=== PATIENT | male | born 1985 | race African-American/Black ===

== ENCOUNTER 2016-03-18 20:20 | Emergency (ER) | payer MEDICAID | END 2016-03-18 23:00 | disposition home or self-care (01) | LOC: D.ER 20:20 | DX: R07.89 Other chest pain (principal) ==

== ENCOUNTER 2017-03-02 21:19 | Emergency (ER) | payer MEDICAID ==
[2017-03-02 22:44] LABS: BASOPHILS 0.3 % (0-2); EOSINOPHILS 0.3 % (0-7); HEMOGLOBIN 14.1 g/dL (13.5-17.5); IMMATURE GRANULOCYTES 5.9 % (0-5); LYMPHOCYTES 9.8 % (15-50); MCH 25.4 pg (26.0-34.0); MCHC 35.3 g/dL (31.0-37.0); MCV 72.1 fL (80.0-100.0); MEAN PLATELET VOLUME 9.7 fL (7.4-10.4); MONOCYTES 6.8 % (2-11); NEUTROPHILS 76.9 % (40-80); PLATELET COUNT 124 10x3/uL (130-400); RBC 5.55 10x6/uL (4.20-6.10); RDW 15.1 % (11.5-14.5); WBC 11.6 10x3/uL (4.8-10.8)
[2017-03-02 22:58] LABS: ALBUMIN 4.5 g/dL (3.4-5.0); ALKALINE PHOSPHATASE 67 U/L (46-116); ALT (SGPT) 31 U/L (10-68); BILIRUBIN - TOTAL 1.46 mg/dL (0.2-1.3); CALC OSMOLALITY 277 mosm/kg (275-300); CALCIUM 9.7 mg/dL (8.5-10.1); CARBON DIOXIDE 29.9 mmol/L (21.0-32.0); CHLORIDE - SERUM 101 mmol/L (98-107); CREATININE - SERUM 1.1 mg/dL (0.6-1.3); GLUCOSE 104 mg/dL (74-106); POTASSIUM - SERUM 4.7 mmol/L (3.5-5.1); SODIUM 139 mmol/L (136-145); UREA NITROGEN 12 mg/dL (7-18); eGFR NON AFRICAN AMERICAN 82 mL/min (90-120)
== END 2017-03-02 23:42 | disposition home or self-care (01) ==
LOC: D.ER 21:19
PROVIDERS: Family Medicine
DX: M62.838 Other muscle spasm (principal)

== ENCOUNTER 2018-11-08 17:37 | Emergency (ER) | payer MEDICAID ==
[~2018-11-08] VITALS: Ht 175.3 cm; Wt 77.3 kg
[2018-11-08 17:41] VITALS: Ht 175.3 cm; Wt 77.3 kg
[2018-11-08 18:08] LABS: BASOPHILS 0.1 % (0-2); EOSINOPHILS 0.9 % (0-7); HEMATOCRIT 38.5 % (42.0-54.0); HEMOGLOBIN 13.8 g/dL (13.5-17.5); IMMATURE GRANULOCYTES 0.1 % (0-5); MCH 23.5 pg (26.0-34.0); MCHC 35.8 g/dL (31.0-37.0); MCV 65.5 fL (80.0-100.0); MONOCYTES 7.3 % (2-11); NEUTROPHILS 66.6 % (40-80); PLATELET COUNT 127 10x3/uL (130-400); RBC 5.88 10x6/uL (4.20-6.10); RDW 16.3 % (11.5-14.5)
[2018-11-08 18:17] LABS: ALBUMIN 3.8 g/dL (3.4-5.0); ANION GAP 12.1 mmol/L (8-16); BILIRUBIN - TOTAL 0.87 mg/dL (0.2-1.3); CALCIUM 8.9 mg/dL (8.5-10.1); CARBON DIOXIDE 28.1 mmol/L (21.0-32.0); CREATININE - SERUM 1.2 mg/dL (0.6-1.3); POTASSIUM - SERUM 3.2 mmol/L (3.5-5.1); PROTEIN - SERUM 8.1 g/dL (6.4-8.2)
[2018-11-08] MEDS ORDERED: VOLTAREN75 MG PO (19:38)
[2018-11-08] MEDS ORDERED: ALBUTEROL SULF8.5 GM INH (19:38)
[2018-11-08 20:16] VITALS: BP 124/79
== END 2018-11-08 20:16 | disposition home or self-care (01) ==
LOC: D.ER 17:37
PROVIDERS: Emergency Medicine
DX: M79.10 Myalgia, unspecified site (principal); J98.11 Atelectasis

== ENCOUNTER 2018-11-19 00:39 | Emergency (ER) | payer MEDICAID ==
[~2018-11-19] VITALS: Ht 175.3 cm; Wt 75.0 kg
[~2018-11-19 00:39] MED LIST: ALBUTEROL SULF8.5 GM INH; VOLTAREN75 MG PO
[2018-11-19 00:43] VITALS: Ht 175.3 cm; Wt 75.0 kg
[2018-11-19] MEDS ORDERED: ULTRAM50 MG PO (01:38)
[2018-11-19 02:24] VITALS: BP 99/56
== END 2018-11-19 02:24 | disposition home or self-care (01) ==
LOC: D.ER 00:39
DX: S49.91XA Unspecified injury of right shoulder and upper arm, initial encounter (principal); W19.XXXA Unspecified fall, initial encounter; S09.90XA Unspecified injury of head, initial encounter; F17.210 Nicotine dependence, cigarettes, uncomplicated